=== PATIENT | male | born 1965 | race Caucasian/White ===

== ENCOUNTER 2023-11-11 11:01 | Emergency (ER) | payer SELFPAY ==
[2023-11-11 11:02] VITALS: BP 169/108; PULSE 124; RESP 18; TEMP 36.6; O2SAT 98; BMI 34.8
[2023-11-11] MEDS: Ondansetron 4 MG/2 ML Vial IV (11:38)
[2023-11-11] MEDS: Ketorolac 15 MG/ML Vial IV (11:38)
[2023-11-11 11:43] LABS: Absolute Lymphocyte Count 2.22 X10^3/uL (0.83-4.51); Absolute Neutrophil Count 12.8 X10^3/uL (2.0-7.7); Basophil# 0.06 X10^3/uL; Basophil% 0.3 % (0-1); Eosinophil# 0.08 X10^3/uL; Eosinophils% 0.4 % (0-5); Hematocrit 41.7 % (40-54); Lymphocyte # 2.22 X10^3/ul (0.83-4.51); Lymphocyte % 12.3 % (19-41); Mean Corp Hgb Conc 33.6 g/dL (32-36); Mean Corpuscular Hgb 31.3 pg (27.0-32.0); Mean Corpuscular Volume 93.3 fL (80-94); Mean Platelet Vol. 9.4 fl (6.2-12.0); Monocyte% 15.5 % (0-10); NRBC Flagged by Analyzer 0 % (0-5); Neutrophil # 12.76 X10^3/uL (2.7-7.7); Neutrophil % 70.9 % (47-70); POSITIVE DIFFERENTIAL YES; Platelet Count 272 K/mm3 (150-450); RBC Distribution Width CV 11.5 % (11.6-14.6); RBC Distribution Width SD 38.9 fl (35.1-43.9); Red Blood Count 4.47 M/mm3 (4.6-6.2)
[2023-11-11 11:46] LABS: Differential Indicated SCAN CRITERIA MET
--- NOTE | 2023-11-11 11:56 | EDS_ITS ---
HPI History of Present Illness Chief Complaint: Abd Pain Narrative Narrative: Patient presenting today due to lower abdominal pain that radiates into his lower back and testicles that he has had constantly since Wednesday. He reports that the pain is sharp and waxing and waning. He has never had pain like this before. He denies any history of diverticulitis or kidney stones. He reports that he thought his urine looked orange on Wednesday but is not sure. He denies fever but reports chills. He denies nausea, vomiting, melena, and hematochezia. Previous abdominal surgeries include left inguinal hernia repair. He reports a PMH of hypertension, does not currently follow with a PCP. [facility] Medical History Bleeding internal hemorrhoids Home Medications amoxicillin 875 mg-potassium clavulanate 125 mg tablet 1 tab PO BID 10 days #19 tabs 11/11/23 [Rx Last Taken Unknown] Allergy/AdvReac Type Severity Reaction Status Date / Time iodine Allergy Other Verified 11/11/23 11:04 acetaminophen AdvReac Vomiting Verified 11/11/23 11:04 [From Darvocet-N 100] codeine AdvReac Vomiting Verified 11/11/23 11:04 oxycodone HCl [From Percocet] AdvReac Vomiting Verified 11/11/23 11:04 propoxyphene napsylate AdvReac Vomiting Verified 11/11/23 11:04 [From Darvocet-N 100] Social History Smoking Status: Former smoker ROS ROS ED Constitutional Constitutional ED: Reports chills; Denies fever(s) Cardiovascular Cardiovascular: Denies chest pain Respiratory/Chest Respiratory/Chest: Denies cough or dyspnea Gastrointestinal Gastrointestinal: Reports abdominal pain; Denies constipation, diarrhea, melena, nausea or vomiting Genitourinary Genitourinary ED: Denies dysuria or urinary urgency Musculoskeletal Musculoskeletal: Reports back pain Integumentary Denies rash Neurologic Neurologic: Denies weakness EXAM Physical Exam Const Vital Signs: 11/11/23 11:02 11/11/23 12:48 Temperature 97.9 F 98.3 F Temperature Source Temporal Pulse Rate 124 H 102 H Respiratory Rate 18 16 Blood Pressure 169/108 H 141/93 H Blood Pressure Mean 128 109 Pulse Ox 98 100 Oxygen Delivery Method Room Air Positive well nourished, well developed and no apparent distress General Appearance ED: well developed HEENT Reports normocephalic and head/scalp atraumatic Mouth ED: Yes moist mucous membranes normal Eyes PERRL and EOMs intact bilaterally Neck full ROM and supple Chest Wall inspection of chest normal Resp normal respiratory effort and clear to auscultation bilaterally Cardio regular rate and regular rhythm GI soft to palpation, non-distended and no masses GI Narrative: Tenderness to palpation across the lower abdomen, worse on the right side. Negative Bryson sign. No rigidity, guarding, or peritoneal signs. Narrative: Testicular exam performed by myself with supervision of the nurse. Bilateral de scended testes. No abnormalities to the genitalia. No pain to palpation to the bilateral testicles, no palpable hernias bilaterally. Back/Spine normal ROM and normal to inspection Extremity normal to inspection and full ROM Neuro oriented x3, CN's II-XII intact bilaterally, moves all extremities, no focal mot or deficits and no sensory deficits noted Sensorium / Orientation: awake and alert Psych mental status grossly normal and thought process normal Skin no rashes or lesions noted and no wounds MDM MDM MDM Narrative Medical decision making narrative: Patient presenting due to lower abdominal pain that radiates to his testicles and lower back that he has had since Wednesday. He is nontoxic-appearing and in no acute distress. He is slightly tachycardic initially and blood pressure is elevated at 169/108. He has a history of hypertension but does not take medication for it. He does have tenderness across his lower abdomen, worse on the right side. Unremarkable testicular exam. Labs will be obtained to rule out leukocytosis, anemia, electrode abnormality, LUIS E, and UTI. CBC shows a WBC of 18. CT of the abdomen pelvis was obtained and shows uncomplicated sigmoid diverticulitis. Patient will be treated with Augmentin with first dose here. He was given IV fluids and Toradol here for pain. He does have an allergy to most narcotics and reports that he will just take Tylenol for pain as needed. He was unable to provide us with a urinary sample. He does not have a PCP, I have given him a referral for 1 and encouraged him to follow-up as he may need a colonoscopy in the future given he has never had one. Diet modifications for diverticulitis were discussed as well as return instructions. He will be discharged home in stable condition and is comfortable with plan. Lab Data Attestation: I reviewed the patient's lab results. Labs: Laboratory Results - last 24 hr 11/11/23 11:20 WBC 18.0 H RBC 4.47 L Hgb 14.0 Hct 41.7 MCV 93.3 MCH 31.3 MCHC 33.6 RDW Std Deviation 38.9 RDW Coeff of Nuno 11.5 L Plt Count 272 MPV 9.4 Immature Gran % (Auto) 0.600 Neut % (Auto) 70.9 H Lymph % (Auto) 12.3 L [place] % (Auto) 15.5 H Eos % (Auto) 0.4 Baso % (Auto) 0.3 Absolute Neuts (auto) 12.8 H Absolute Lymphs (auto) 2.22 Nucleated RBC % 0 Differential Comment SCANNED Diff Path Review May foll Sodium 135 L Potassium 4.1 Chloride 105 Carbon Dioxide 25.0 Anion Gap 5 BUN 13 Creatinine 1.22 Estim Creat Clear Calc 82.97 Est GFR (MDRD) Af Amer 79 Est GFR (MDRD) Non-Af 65 BUN/Creatinine Ratio 10.7 Glucose 127 H Calcium 9.2 Total Bilirubin 1.10 H AST 25 ALT 40 Alkaline Phosphatase 81 Total Protein 8.0 Albumin 3.8 Globulin 4.2 Albumin/Globulin Ratio 0.9 Lipase 27 Radiography Diagnostic Testing: Clinical Impression(s) from Imaging Studies Abdomen/Pelvis CT 11/11/23 12:02 IMPRESSION: Findings in keeping with noncomplicated sigmoid diverticulitis. Electronically Signed: Cresencio Peterson MD at 12:17 EST , Discharge Plan Triage Chief Complaint: Abd Pain ED Midlevel Provider: Bere Jones ED Provider: Inés Rivera Dx/Rx/DC Orders Clinical Impression: Diverticulitis Instructions: Diverticulitis Dc Prescriptions: New amoxicillin-pot clavulanate 875-125 mg tablet 1 tab PO BID 10 Days Qty: 19 0RF Primary Care Provider: Care Physician,No Primary Referrals: Karin Ortega MD [Med Staff - Chief Deputy Clerk/Bailiff] - 5-7 Days Care Physician,No Primary [Primary Care Provider] - Activity Restrictions/Additional Instructions: Please follow-up with the PCP I referred you to and return for any worsening of your symptoms. Disposition Disposition: Home, Self Care Discharge Date/Time: 11/11/23 12:50
--- NOTE | 2023-11-11 12:02 | CT_ITS ---
STUDY: CT ABDOMEN AND PELVIS WITHOUT CONTRAST REASON FOR EXAM: Male, 58 years old. Abdominal pain RADIATION DOSAGE (If Supplied By Facility): CTDIvol = ( 17.94 ) mGy, DLP = ( 1013.00 ) mGycm TECHNIQUE: Transaxial images were obtained from the dome of the diaphragm to the symphysis pubis without oral contrast, and without intravenous contrast. Sagittal and coronal images were reconstructed. Individualized dose optimization techniques were used for this CT. COMPARISON: None. FINDINGS: The visualized lung bases are unremarkable. Coronary artery calcification. There is decreased attenuation of the liver consistent with steatosis. Normal gallbladder and extrahepatic biliary system. Tiny cyst in the midportion of the spleen. Normal pancreas. Normal bilateral adrenal glands. Normal right kidney. Normal left kidney. Normal visualized stomach. Normal small intestine. There is diverticulosis, with thickening of the colon wall, and pericolonic inflammation changes consistent with acute diverticulitis. The appendix is visualized and appears normal. There is scattered atherosclerotic calcification of the abdominal aorta, without a demonstrated aneurysm. Normal inferior vena cava. Normal retroperitoneum. Normal urinary bladder. Small prostatic calcification. There is a right-sided inguinal hernia containing adipose tissue. There are mild degenerative changes of the visualized lumbar spine. CT/Abdomen/Pelvis without Cont IMPRESSION: Findings in keeping with noncomplicated sigmoid diverticulitis. Electronically Signed: Cresencio Peterson MD at 12:17 EST ,
[2023-11-11 12:09] LABS: ALB/GLOB Ratio 0.9 RATIO (0.9-2.4); AST(SGOT) 25 U/L (15-37); Alanine Aminotransfer ALT/SGPT 40 U/L (16-61); Albumin, Serum 3.8 g/dL (3.2-5.0); Alkaline Phosphatase 81 U/L (45-117); Anion Gap 5 (5-15); BUN 13 mg/dL (7-18); BUN/Creat Ratio 10.7 RATIO (10-20); Calcium,Total 9.2 mg/dL (8.5-10.1); Chloride 105 mmol/L (98-107); Creatinine, Serum 1.22 mg/dL (0.70-1.30); Differential Comment SCANNED; EST Glomerular Filtration Rate 65 mL/min (>60); Est Glom Filt Rate - Afr Amer 79 mL/min (>60); Estimated Creatinine Clearance 82.97 ml/min; Globulin 4.2 g/dL (2.2-4.2); Glucose 127 mg/dL (74-106); Lipase 27 U/L (13-75); Potassium 4.1 mmol/L (3.5-5.1); Sodium Level 135 mmol/L (136-145)
--- OUTSIDE RECORDS SUMMARY | 2023-11-11 12:17 | XMS RPT_ITS | CCD ---
Author Name Unknown Address [address] [facility] [address] [place] [address] Organization [facility] Care Team Providers Care Programs Manager Name Role Phone NO, PHYSICIAN Unavailable ANGIE Vera Referring ANGIE Sethi Attending ANGIE Sethi Attending Fany nunez Allergies Allergy Classification Reported Allergen(s) Allergy Type Date of Onset Reaction(s) Facility (1 source) Acetaminophen / oxyCODONE; Translations: [OXYCODONE-ACETAM INOPHEN] Drug Allergy 3 [facility] (1 source) Codeine; Translations: [CODEINE] Drug Allergy 3 [facility] Rep[facility] (1 source) Iodine; Translations: [IODINE] Drug Allergy 3 [facility] (1 source) oxyCODONE; Translations: [OXYCODONE] Drug Allergy 3 [facility] (1 source) PROPOXYPHENE N-ACETAMINOPHEN; Translations: [PROPOXYPHENE N-ACETAMINOPHEN] Propensity to adverse reactions to drug (disorder) 3 [facility] Encounters Encounter Date Encounter Type Care Provider Facility Start: 10-11-2023 End: 10-11-2023 ambulatory ANGIE MARCANO Facility:[facility] Start: 08-16-2023 End: 08-16-2023 ambulatory ANGIE Yaya [facility] Facility:[facility] Start: 08-05-2017 Ambulatory PHYSICIAN NO [facility] Payers Date Payer Category Payer Unknown [id number] Progress note 10-11-2023 Note Date & Type Note Facility 10-11-2023 Note HNO ID: [id number] Author: ANGIE MARCANO OD Service: ? Author Type: MANAGER ORGANIZATIONAL Type: Progress Notes Filed: 10/11/2023 13:15 Note Text: ASSESSMENT/PLAN: 1. Myopia, bilateral - ICD9: 367.1, ICD10: H52.13 Ok to order the lenses to be worn at the most 30 days at a time and then replaced for a new pair. Recommended yearly exams. Angie Marcano OD I have confirmed and edited as necessary the relevant ophthalmic history, ROS, and the neuro exam findings as obtained by others. I have seen and examined this patient. [facility] Progress note 08-16-2023 Note Date & Type Note Facility 08-16-2023 Note HNO ID: [id number] Author: Angie Marcano OD Service: ? Author Type: MANAGER ORGANIZATIONAL Type: Progress Notes Filed: 08/16/2023 10:54 AM Note Text: ASSESSMENT/PLAN: 1. Myopia, bilateral - ICD9: 367.1, ICD10: H52.13 (primary diagnosis) 2. Regular astigmatism, bilateral - ICD9: 367.21, ICD10: H52.223 3. Presbyopia - ICD9: 367.4, ICD10: H52.4 Continue to wear his glasses as a back up as desired. Dispensed extended wear contact lenses to be worn extended wear for 30 days max and changing them each month. Return for Cl check in 1-2 weeks. Angie Marcano, NIKKO I have confirmed and edited as necessary the relevant ophthalmic history, ROS, and the neuro exam findings as obtained by others. I have seen and examined this patient. [facility] Summary Purpose Family History No Family History Records FoundNo Family History Records Found Advance Directives No Advanced Directives Records FoundNo Advanced Directives Records Found Additional Source Comments (unrecognized sect ion and content) No Status Records FoundNo Status Records Found INFORMATION SOURCE (unrecogn ized section and content) DATE CREATED AUTHOR AUTHOR'S ORGANIZ ATION 10/12/2023 [facility] FOR RECORDS PERTAINING TO PATIENTS WHO ARE OR HAVE BEEN ENROLLED IN A CHEMICAL DEPENDENCY/SUBSTANCEABUSE PROGRAM, SOME INFORMATION MAY BE OMITTED. This clinical summary was aggregated from multiple sources. Caution should be exercised in using it in the provision of clinical care. This summary normalizes information from multiple sources, and as a consequence, information in this document may materially change the coding, format and clinical context of patient data. In addition, data may be omitted in some cases. CLINICAL DECISIONS SHOULD BE BASED ON THE PRIMARY CLINICAL RECORDS. [employer] provides no warranty or guarantee of the accuracy or completeness of information in this document.
[2023-11-11] MEDS: 0.9% Normal Saline (1000mL) 1,000 ML 999 ML IV (12:28)
[2023-11-11] MEDS: Amox/Clavulanate 875 MG Tablet PO (12:45)
[2023-11-11 12:48] VITALS: BP 141/93; PULSE 102; RESP 16; TEMP 36.8; O2SAT 100
[2023-11-12 13:20] LABS: Pathologist Review Reviewed
== END 2023-11-11 12:50 | disposition home or self-care (01) ==
PROVIDERS: Physician Assistant; Emergency Provider Emergency Medicine; Visit Provider Emergency Medicine
DX: K57.92 Diverticulitis of intestine, part unspecified, without perforation or abscess without bleeding (principal); Z87.891 Personal history of nicotine dependence
CPT/HCPCS: 74176; 80053; 83690; 85025; 99283; J7030; A4216; J2405